=== PATIENT | female | born 1995 | race Caucasian/White ===

== ENCOUNTER 2019-02-23 17:18 | Inpatient (IN) | payer MEDICAID ==
[2019-02-23] VITALS (7 sets, daily range): BP systolic 125–139; BP diastolic 69–79; PULSE 88–113; TEMP 97.4–97.6
[~2019-02-23] VITALS: Ht 166.4 cm; Wt 106.8 kg
[~2019-02-23 17:18] MED LIST: ALEVE220 MG PO; CONCERTA; MOTRIN800 MG PO
--- NOTE | 2019-02-23 19:50 | NUR ---
G1L0. 40-3. Ambulatory to LDR 5 with spouse and family for scheduled cytotec induction. Clean gown on. EFM and TOCO explained and applied. Pt denies contractions, LOF or vaginal bleeding. Pt reports very good movement. Pt appears very nervous at this time. Reassuring pt completed and questions answered. 2013: IV started and labs obtained via IV site. LR fluids running without difficulties. Consents and assessment completed. 2101: SVE /-3, ballotable. Cytotec 50mcg PO explained and administered per orders. Questions answered at this time. Denies needing anything. Call light within reach.
[2019-02-23] MEDS ORDERED: PRENATAL MVI PO (20:38)
[2019-02-23 21:36] LABS: BASO % 0.2 % (0.0-2.0); EOS % 0.4 % (0-4.0); GRAN # 7.3 (1.4-6.5); GRAN % 77.4 % (42.2-75.2); LYMPH # 1.3 (1.2-3.4); LYMPH % 13.9 % (20.0-51.0); MEAN CELL VOLUME 79 fl (80.0-100.0); MEAN CORPUSCULAR HGB CONC 31 g/dl (33.0-37.0); MEAN PLATELET VOLUME 12.9 fl (7.4-10.4); MONO # 0.7 (0.1-0.6); MONO % 7.3 % (1.7-9.3); PLATELET COUNT 265 K/mm3 (130-400); RED BLOOD COUNT 3.91 M/mm3 (4.10-5.30); REDCELL DISTRIBUTION WIDTH-CV 16.1 % (11.5-14.5)
[2019-02-23 21:37] LABS: HEMOGLOBIN 9.7 g/dl (12.5-16.0); MEAN CORPUSCULAR HEMOGLOBIN 25 pg (27.0-31.0)
[2019-02-24] VITALS (80 sets, daily range): BP systolic 91–141; BP diastolic 39–91; PULSE 67–111; TEMP 97.2–98.5
--- NOTE | 2019-02-24 06:30 | NUR ---
Bedside shift report from Luz RN to assume care of patient at this time. LR and Pitocin started per orders. Patient reports mild cramping with contractions. Questions answered. Denies needs at this time. Mother and FOB at bedside. Call light within reach.
--- NOTE | 2019-02-24 08:15 | NUR ---
to bedside for AROM. Patient up to bathroom prior to provider arrival into room. SVE 1-2//-2 per . AROM at 0818, scant amount of clear fluid noted. Pericare performed. Plan of care discussed, questions answered. Mother and FOB remain at bedside. Call light within reach.
--- NOTE | 2019-02-24 09:10 | NUR ---
0855: Patient sitting up for epidural placement. Rickie NGUYEN at bedside. 0859: Lidocaine. 0900: Epidural Catheter placed. 0903: Test Dose given by Rickie NGUYEN, no adverse reactions noted. 0910: Patient repositioned to left tilt. Plan of care discussed. Questions answered. Call light within reach.
--- NOTE | 2019-02-24 09:45 | NUR ---
Patient comfortable with epidural. Cárdenas catheter placed. SVE 2-3/80/-2. Pericare performed. Patient repositioned to right tilt, peanut ball in place. Denies questions or needs at this time. Encouraged to rest. Call light within reach.
--- NOTE | 2019-02-24 10:35 | NUR ---
Patient requests to reposition to her left side. To left lateral, peanut ball in place. Denies pain or needs. Encouraged to rest.
--- NOTE | 2019-02-24 11:15 | NUR ---
Patient sleeping upon RN entry to room. SVE /-2. Patient remains tilted to left with HOB elevated, peanut ball in place. Denies pain or needs, encouraged to rest. Call light within reach.
--- NOTE | 2019-02-24 12:45 | NUR ---
Patient continues to rest, denies pain or needs. SVE 3-4/-2. Pericare performed, Patient repositioned to right tilt with peanut ball, HOB elevated.
--- NOTE | 2019-02-24 14:10 | NUR ---
Patient resting comfortably, denies pain or needs. SVE /-2. Pericare performed. Patient repositioned to left tilt with peanut ball in place.
--- NOTE | 2019-02-24 15:05 | NUR ---
Patient repositioned to right tilt, peanut ball in place, head of bed elevated. Patient denies pain or needs. Encouraged to continue resting.
--- NOTE | 2019-02-24 16:10 | NUR ---
Patient visiting with FOB and mother at bedside. SVE 4-5/-1. Patient repositioned to left tilt, HOB elevated, peanut ball in place. Popsicle provided. Denies pain or needs. Call light within reach.
--- NOTE | 2019-02-24 16:50 | NUR ---
Patient repositioned to right tilt, peanut ball remains in place.
--- NOTE | 2019-02-24 17:15 | NUR ---
Patient repositioned to left lateral. SVE 4cm per Pranav EDGE. Questions answered. Patient comfortable with epidural, denies needs.
--- NOTE | 2019-02-24 19:26 | NUR ---
Dr. Hurtado at bedside for SVE 2. Dr. Hurtado discussing plan of care with patient regarding cervix being unchanged for over 6 hours.
--- NOTE | 2019-02-24 19:35 | NUR ---
Pt requesting Dr. Hurtado to bedside to ask questions regarding . Dr. Hurtado educating patient and family. Opal Borrero at bedside at this time as well.
--- NOTE | 2019-02-24 19:45 | NUR ---
Decision made to proceed with section. Anesthesia on floor and updated. Nursery updated. Incision site clipped by this RN. Hibiclens to abdomen.
--- NOTE | 2019-02-24 20:07 | NUR ---
Monitors off and patient moved to OR by labor bed. Delay in transferring to OR due to the OR needing to be cleaned. Once in OR, FHR 130s.
--- NOTE | 2019-02-25 05:15 | NUR ---
Pt ambulated to bathroom with standby assistance at this time. Cárdenas catheter removed without difficulty. Pericare explained and provided. Mesh panties and peripad applied. New clean gown on. Pt educated on need to measure first 3 voids. Pt ambulated back to bed independently. Abdominal binder in place. Pt tolerated ambulated well.
[2019-02-25 05:30] VITALS: BP 135/67; PULSE 84; TEMP 97.7
[2019-02-25 07:50] VITALS: BP 124/75; PULSE 81; TEMP 97.5
[2019-02-25] MEDS ORDERED: PERCOCET 325 MG1 TA2 PO (08:01)
[2019-02-25] MEDS ORDERED: MOTRIN 800800 MG/TAB PO (08:01)
--- NOTE | 2019-02-25 09:49 | NUR ---
Initial visit; Patient thanked Transitions Rn Care Coordinator for offering congratulations for the of her daughter and offering God's blessings to her family.
[2019-02-25 11:26] VITALS: BP 145/70; PULSE 90; TEMP 97.5
[2019-02-25 17:00] VITALS: BP 127/63; PULSE 84; TEMP 97.7
[2019-02-25 20:20] VITALS: BP 113/64; PULSE 114; TEMP 97.9
[2019-02-26 09:21] VITALS: BP 115/65; PULSE 77; TEMP 97.6
--- NOTE | 2019-02-26 16:45 | NUR ---
Discharge instructions given, pt verbalizes understanding. No further questions noted. Bands matched and hugs tag removed. teaching videos, depression and safe sleep video watched. [facility] schedule [facility]t while this nurse in room. 1710:[facility] Taken to personal vehicle.
== END 2019-02-26 17:10 | disposition home or self-care (01) | DRG 788 ==
LOC: LDR 17:18 → OB 19:44 → LDR 19:44 → OB 02-24 22:09
PROVIDERS: ADMIT Obstetrics & Gynecology
PROC: 10907ZC Drainage of Amniotic Fluid, Therapeutic from Products of Conception, Via Natural or Artificial Opening (ICD-10-PCS; 2019-02-23)
PROC: 3E0P7GC Introduction of Other Therapeutic Substance into Female Reproductive, Via Natural or Artificial Opening (ICD-10-PCS; 2019-02-23)
PROC: 3E033VJ Introduction of Other Hormone into Peripheral Vein, Percutaneous Approach (ICD-10-PCS; 2019-02-23)
PROC: 10D00Z1 Extraction of Products of Conception, Low, Open Approach (ICD-10-PCS; principal; 2019-02-24)
DX: O48.0 Post-term pregnancy (principal); Z3A.40 40 weeks gestation of pregnancy; O99.02 Anemia complicating childbirth; D64.9 Anemia, unspecified; O99.214 Obesity complicating childbirth; O61.9 Failed induction of labor, unspecified; O62.0 Primary inadequate contractions; Z37.0 Single live birth
CPT/HCPCS: J0690; J1885; J2370; J2405; J2590; J7120